=== PATIENT | female | born 1995 | race Caucasian/White ===

== ENCOUNTER 2016-11-20 12:08 | Emergency (ER) | payer OTHER ==
[~2016-11-20] VITALS: Ht 167.6 cm; Wt 93.6 kg
[~2016-11-20 12:08] MED LIST: MICROGESTIN FE1 EACH PO; PROZAC20 MG PO; VYVANSE10 MG PO
[2016-11-20 14:33] LABS: HEMATOCRIT 37.9 % (36.0-46.0); MCHC 34.6 G/DL (30.0-36.0); MCV 89.8 FL (83-99); MEAN PLAT.VOLUME 10.1 uM^3 (9.5-12.4); PLATELET COUNT 259 K/uL (156-360); RBC DIS.WIDTH-CV 12.9 % (11.8-14.6); RBC DIS.WIDTH-SD 41.9 % (39-53); RED BLOOD COUNT 4.22 M/uL (3.80-5.20); WHITE BLOOD COUNT 9.6 K/uL (4.1-10.2)
[2016-11-20 14:42] LABS: ADD MIUA? YES; BILIRUBIN NEGATIVE; BLOOD NEGATIVE; COLOR YELLOW ((YELLOW)); GLUCOSE (STRIP) NEGATIVE; KETONES 5; LEUKOCYTES NEGATIVE; NITRITE NEGATIVE; PROTEIN (STRIP) 30; SPECIFIC GRAVITY 1.015 (1.000-1.030); UROBILINOGEN 0.2 MG/DL (0.2-1.0)
[2016-11-20 14:45] LABS: CHLORIDE 106 mEq/L (99-109); POTASSIUM 3.7 mEq/L (3.7-5.4); SODIUM 138 mEq/L (136-147)
[2016-11-20 14:47] LABS: GLUCOSE 96 mg/dL (70-99)
[2016-11-20 14:49] LABS: ANION GAP 11 MEQ/L (2-14); TOTAL BILIRUBIN 0.5 mg/dL (0.0-1.0)
[2016-11-20 14:50] LABS: SERUM ETHYL ALCOHOL < 10 mg/dL
[2016-11-20] MEDS ORDERED: PRENATA CHEWAB1 EACH PO (14:50)
[2016-11-20 14:51] LABS: BACTERIA RARE /HPF; EPITHELIAL CELLS 3+ /HPF; MUCUS TRACE /LPF; RED BLOOD CELLS 0-5 /HPF (0-5); UCUL ADDED? NO; WHITE BLOOD CELLS 0-5 /HPF (0-5)
[2016-11-20 14:51] LABS: ALKALINE PHOSPHATASE 94 IU/L (3-129); GFR ESTIMATE (CALCULATED) > 59 mL/min/
[2016-11-20 14:52] LABS: UREA NITROGEN (BUN) 9 mg/dL (9-23)
[2016-11-20 14:55] LABS: LIPASE 9 U/L (1.0-51.0)
[2016-11-20 15:26] LABS: QUANTITATIVE HCG 49082.6 MIU/ML
[2016-11-20 16:46] VITALS: BP 121/66
== END 2016-11-20 16:47 | disposition home or self-care (01) ==
LOC: EME 12:08
PROVIDERS: Emergency Medicine
DX: O99.341 Other mental disorders complicating pregnancy, first trimester (principal); F32.9 Major depressive disorder, single episode, unspecified; O26.891 Other specified pregnancy related conditions, first trimester; R10.9 Unspecified abdominal pain; Z87.891 Personal history of nicotine dependence; Z3A.01 Less than 8 weeks gestation of pregnancy
CPT/HCPCS: 80053; 81003; 83690; 84702; 85027; 90839; 99281; 99282; G0480

== ENCOUNTER 2017-02-18 16:55 | Emergency (ER) | payer OTHER ==
[~2017-02-18] VITALS: Ht 167.6 cm; Wt 97.3 kg
[~2017-02-18 16:55] MED LIST changes: +PRENATA CHEWAB1 EACH PO
[2017-02-18 19:21] LABS: HEMATOCRIT 37.3 % (36.0-46.0); MCHC 35.1 G/DL (30.0-36.0); MCV 91.2 FL (83-99); MEAN PLAT.VOLUME 10.1 uM^3 (9.5-12.4); PLATELET COUNT 221 K/uL (156-360); RBC DIS.WIDTH-CV 13.3 % (11.8-14.6); RBC DIS.WIDTH-SD 43.8 % (39-53); RED BLOOD COUNT 4.09 M/uL (3.80-5.20); WHITE BLOOD COUNT 10.8 K/uL (4.1-10.2)
[2017-02-18 19:30] LABS: CHLORIDE 107 mEq/L (99-109); SODIUM 139 mEq/L (136-147)
[2017-02-18 19:31] LABS: GLUCOSE 93 mg/dL (70-99)
[2017-02-18 19:33] LABS: ANION GAP 12 MEQ/L (2-14)
[2017-02-18 19:35] LABS: GFR ESTIMATE (CALCULATED) > 59 mL/min/
[2017-02-18 19:36] LABS: UREA NITROGEN (BUN) 8 mg/dL (9-23)
[2017-02-18 19:42] LABS: TROP-I INTERPRETATION NEGATIVE; TROPONIN-I < 0.01 ng/mL (0.0-0.30)
[2017-02-18 20:14] LABS: QUANTITATIVE HCG 25764.9 MIU/ML
[2017-02-18] MEDS ORDERED: PROVENTIL HFA6.7 GM IH (23:24)
[2017-02-18] MEDS ORDERED: ZITHROMAX Z-PA250 MG PO (23:24)
[2017-02-18] MEDS ORDERED: AUGMENTIN875 MG PO (23:24)
[2017-02-18] MEDS ORDERED: ROBITUSSIN COU PO (23:24)
[2017-02-18 23:59] VITALS: BP 128/61
== END 2017-02-19 00:04 | disposition home or self-care (01) ==
LOC: EME 16:55
DX: O99.512 Diseases of the respiratory system complicating pregnancy, second trimester (principal); J18.9 Pneumonia, unspecified organism; Z3A.20 20 weeks gestation of pregnancy; F90.9 Attention-deficit hyperactivity disorder, unspecified type; Z87.891 Personal history of nicotine dependence
CPT/HCPCS: 71020; 80048; 83605; 84484; 84702; 85027; 93005; 94640; 99281; 99285; J0696; J7030; J7040